=== PATIENT | female | born 1990 | race Caucasian/White ===

== ENCOUNTER 2017-04-26 18:01 | Emergency (ER) | payer MEDICAID ==
[2017-04-26] MEDS: IBUPROFEN 600 MG TAB PO (19:31)
== END 2017-04-26 21:16 | disposition home or self-care (01) ==
LOC: FTE 18:01
DX: S09.90XA Unspecified injury of head, initial encounter (principal); F17.210 Nicotine dependence, cigarettes, uncomplicated; R51 Headache; V49.40XA Driver injured in collision with unspecified motor vehicles in traffic accident, initial encounter
CPT/HCPCS: 70450; 72040; 99284-25